=== PATIENT | male | born 1955 | race Caucasian/White ===

== ENCOUNTER 2019-05-17 21:01 | Inpatient (IN) | payer SELFPAY ==
[~2019-05-17] VITALS: Ht 167.6 cm; Wt 72.1 kg
[2019-05-17] MEDS ORDERED: LEVETIRACETAM 500MG PREMIX 100 ML IV ONE (23:00)
[2019-05-17 23:14] LABS: BASOPHILS % 0.4 % (0.0-2.0); EOSINOPHILS % 0.2 % (0.0-5.0); HEMOGLOBIN. 14.5 g/dL (14.0-18.0); LYMPHOCYTES % 10.2 % (20.0-50.0); MEAN CORPUSCULAR HEMOGLOBIN 31.6 pg (28.0-32.0); MEAN CORPUSCULAR VOLUME 93.8 fL (80.0-94.0); MEAN PLATELET VOLUME 6.7 fl (7.4-10.4); MONOCYTES % 10.5 % (2.0-8.0); NEUTROPHILS % 78.7 % (40.0-76.0); PLATELET 296 x1000/uL (130-400); RED BLOOD CELL COUNT 4.59 mill/uL (4.7-6.1); RED CELL DISTRIBUTION WIDTH 12.6 % (11.6-14.6)
[2019-05-17] MEDS ORDERED: DEXT 5%/0.45% NACL 1000ML 1,000 ML IV ONE (23:19)
[2019-05-17] MEDS ORDERED: LORAZEPAM 2MG/ML CPJ ONE (23:20)
[2019-05-17 23:21] LABS: CHLORIDE 98 mEq/L (98-107)
[2019-05-17] MEDS ORDERED: LORAZEPAM 2MG/ML CPJ IV ONE (23:30)
[2019-05-18] MEDS ORDERED: ONDANSETRON HCL 4MG/2ML INJ IV PRN (06:45)
[2019-05-18] MEDS ORDERED: LORAZEPAM 2MG/ML CPJ IV PRN (06:45)
[2019-05-18 09:00] VITALS: BP 168/81
[2019-05-18] MEDS ORDERED: ENOXAPARIN 40MG/0.4ML SYR SUBCUT SCH (09:00)
[2019-05-18] MEDS ORDERED: MVI, ADULT NO.1 10 ML, FOLIC ACID 1 MG, THIAMINE HCL 100 MG in SODIUM CHLORIDE 0.9% 1,0... IV SCH ×4 (10:00)
[2019-05-18 12:00] VITALS: BP 137/63
[2019-05-18 16:00] VITALS: BP 159/80
[2019-05-18] MEDS ORDERED: ATEN-42 PO (17:12)
[2019-05-18] MEDS ORDERED: PRAV40TA58 MT ×2 (17:12→18:00)
[2019-05-18] MEDS ORDERED: ASPI-1393 PO ×2 (17:12→18:00)
[2019-05-18] MEDS ORDERED: KEPP500 PO ×2 (17:12→18:00)
[2019-05-18] MEDS ORDERED: LOSA50TA41 PO (18:00)
[2019-05-18] MEDS ORDERED: DEXT 5%/0.45% NACL 1000ML 1,000 ML IV SCH (18:00)
[2019-05-18 18:51] VITALS: BP 115/73
[2019-05-18 20:00] VITALS: BP 115/73
== END 2019-05-18 21:08 | disposition home or self-care (01) | DRG 53 ==
LOC: EDBD 21:01 → ER 22:01 → 5WST 05-18 01:21 → EDBEDREQDT 05-18 01:25 → EDBEDREQTM 05-18 01:25 → EDBEDREQ 05-18 01:25 → ENRESERV 05-18 07:27
PROVIDERS: ADMIT Family Medicine Adult Medicine; ATTEND Family Medicine Adult Medicine
DX: G40.909 Epilepsy, unspecified, not intractable, without status epilepticus (principal); I10 Essential (primary) hypertension; Z91.14 Patient's other noncompliance with medication regimen
CPT/HCPCS: 36415; 71045; 80320; 93005; J1650; J1953; J2060; J3411; J3490; J7030; G0480